=== PATIENT | female | born 1965 | race Caucasian/White ===

== ENCOUNTER 2019-10-06 10:46 | Outpatient (CLI) | payer BC, SELFPAY ==
--- NOTE | ~2019-10-06 | MM_ITS ---
EXAMINATION: MM screening [facility] BI w michelle HISTORY: Screening mammogram TECHNIQUE: Craniocaudal and mediolateral oblique 3-D tomosynthesis images were obtained and synthetic 2-D images were generated. CAD analysis was submitted and interpreted. COMPARISON: 12/24/2017, 05/31/2016, 11/23/2013 BREAST PARENCHYMAL COMPOSITION: The breasts are heterogeneously dense, which may obscure small masses . FINDINGS: RIGHT BREAST: There is a possible mass in the posterior third of the lower inner breast 5 cm from the nipple. LEFT BREAST: There is no evidence of suspicious mass, calcification, or architectural distortion to s uggest malignancy. There has been no significant interval change. IMPRESSION: 1. Possible right breast mass. 2. Additional mammographic views and possible breast ultrasound are recommended. BI-RADS Category 0: Incomplete: Needs additional imaging evaluation. Reviewed, dictated and finalized at location A. IMPRESSION: 1. Possible right breast mass. 2. Additional mammographic views and possible breast ultrasound are recommended . BI-RADS Category 0: Incomplete: Needs additional imaging evaluation.
== END 2019-10-06 10:47 | disposition home or self-care (01) ==
PROVIDERS: PCP Family Medicine; Visit Provider Obstetrics & Gynecology
DX: Z12.31 Encounter for screening mammogram for malignant neoplasm of breast (principal)
CPT/HCPCS: 77063; 77067

== ENCOUNTER 2019-10-08 10:15 | Outpatient (CLI) | payer BC, SELFPAY ==
--- NOTE | ~2019-10-08 | MMUS_ITS ---
EXAMINATION: MM diagnostic emily RT w michelle, US breast RT limited HISTORY: Possible right breast mass on screening mammogram TECHNIQUE: Additional 3-D tomosynthesis images of right were performed and synthetic 2-D images were generated. CAD analysis was submitted and interpreted. High resolution limited right breast ultrasoun d was performed. COMPARISON: 10/06/2019, 12/24/2017, 05/31/2016, 11/23/2013 FINDINGS: MAMMOGRAPHIC FINDINGS: There is an approximately 6 mm low density, obscured mass in the posterior third of the breast at 3:0 0 location 5 cm deep to the nipple. No associated architectural distortion or suspicious calcificatio n are identified. ULTRASOUND: There is a 5 mm x 3 mm cyst at the 2:00 location 3 cm from the nipple corresponding to the mammograph ic finding in question. No suspicious cystic or solid mass is identified. IMPRESSION: 1. No mammographic or sonographic evidence of malignancy. 2. Recommend routine screening mammography in one year. BI-RADS Category 2: Benign finding(s). Reviewed, dictated and finalized at location A. IMPRESSION: 1. No mammographic or sonographic evidence of malignancy. 2. Recommend routine screening mammography in one year. BI-RADS Category 2: Benign finding(s).
== END 2019-10-08 10:16 | disposition home or self-care (01) ==
LOC: CHSIMG 10:16
PROVIDERS: PCP Family Medicine; Visit Provider Obstetrics & Gynecology
DX: R92.8 Other abnormal and inconclusive findings on diagnostic imaging of breast (principal)
CPT/HCPCS: 76642; 77061; 77065; G0279

== ENCOUNTER 2020-08-17 13:21 | Outpatient (CLI) | payer BC, SELFPAY ==
[2020-08-17 14:24] LABS: SARS-CoV-2 RNA PCR Negative (Negative)
== END 2020-08-17 13:22 | disposition home or self-care (01) ==
PROVIDERS: PCP Family Medicine; Visit Provider Family Medicine
DX: J00 Acute nasopharyngitis [common cold] (principal); Z20.822 Contact with and (suspected) exposure to COVID-19
CPT/HCPCS: C9803; U0003; U0005

== ENCOUNTER 2020-10-12 12:16 | Outpatient (CLI) | payer BC, SELFPAY ==
--- NOTE | ~2020-10-12 | MM_ITS ---
EXAMINATION: MM screening emily BI w michelle HISTORY: Screening TECHNIQUE: Craniocaudal and mediolateral oblique 3-D tomosynthesis images were obtained and synthetic 2-D images were generated. CAD analysis was submitted and interpreted. COMPARISON: Comparison to multiple prior studies sequentially, with oldest reviewed study dated 11/11. BREAST PARENCHYMAL COMPOSITION: The breasts are heterogeneously dense, which may obscure small masses . FINDINGS: There is no evidence of suspicious mass, calcification, or architectural distortion to sugg est malignancy in either breast. There has been no suspicious interval change. IMPRESSION: 1. No mammographic evidence of malignancy. 2. Recommend routine screening mammography in one year. BI-RADS Category 1: Negative Reviewed, dictated and finalized at location D.
== END 2020-10-12 12:17 | disposition home or self-care (01) ==
PROVIDERS: PCP Family Medicine; Visit Provider Obstetrics & Gynecology
DX: Z12.31 Encounter for screening mammogram for malignant neoplasm of breast (principal)
CPT/HCPCS: 77063; 77067

== ENCOUNTER 2020-12-02 10:29 | Outpatient (CLI) | payer BC, SELFPAY ==
--- NOTE | ~2020-12-02 | XR_ITS ---
EXAMINATION: XR elbow RT min 3V DATE: 12/02/2020 10:49 INDICATION: Right elbow pain. TECHNIQUE: 4 views of right elbow were obtained. COMPARISON: None. FINDINGS: Bone alignment is normal. No fracture. Joint spaces are well maintained. There is no elbow joint effusion. IMPRESSION: 1. Normal right elbow. Reviewed, dictated and finalized at location A. IMPRESSION: 1. Normal right elbow.
== END 2020-12-02 10:30 | disposition home or self-care (01) ==
LOC: CHSLAB 10:32
PROVIDERS: PCP Family Medicine; Visit Provider Family Medicine
DX: M25.521 Pain in right elbow (principal)
CPT/HCPCS: 73080

== ENCOUNTER 2021-03-20 11:15 | Outpatient (CLI) | payer BC, SELFPAY ==
--- NOTE | ~2021-03-20 | XR_ITS ---
EXAMINATION: XR knee RT 3V EXAM DATE: 03/20/2021 11:45 INDICATION: PAIN IN lateral RIGHT KNEE with bending movements . TECHNIQUE: Three projections of the right knee. Comparison is made to prior examination from 8. FINDINGS: There is round well corticated small ossification projecting over the posterior lateral aspect of the tibiofemoral compartment, could be a right knee joint body. This finding has been indic ated, marked on the examination for review, clinical correlation, and was not present on prior study. Trace joint fluid. There is mild to moderate tricompartmental primary osteoarthritis. There are no ac [place] fractures or dislocations identified. There is no subcutaneous gas. The soft tissue is unremark able. There are no radiopaque foreign bodies. IMPRESSION: Probable right knee joint body. Mild to moderate osteoarthritis. Reviewed, dictated and finalized at location B. IFIED DIETARY MANAGER
== END 2021-03-20 11:16 | disposition home or self-care (01) ==
LOC: CHSIMG 11:16
PROVIDERS: PCP Family Medicine; Visit Provider Family Medicine
DX: M25.561 Pain in right knee (principal)
CPT/HCPCS: 73562

== ENCOUNTER 2021-05-10 15:54 | Outpatient (RCR) | payer BC, SELFPAY ==
--- NOTE | 2021-05-10 16:48 | PTOPEVAL ---
Thank you for referring Pratima Gipson to [facility].? The patient is scheduled to be seen for therapy? ____x/week for ___ weeks. Please review, sign, date and return this plan of care ERICKA. I agree with and certify that the following plan of care is medically necessary. Referring Physician Date Admitting Provider: Attending Provider: Juana Musa, PA Referring Provider: *PT Outpatient Evaluation Start: 05/10/21 16:01 Freq: Status: Active Protocol: Document 05/10/21 16:04 [facility] (Rec: 05/10/21 16:47 [facility] [id number]) Therapy Assessment Status Assessment Status Assessment Status Evaluation Evaluation Information Problem Diagnosis R knee pain, s/p meniscectomy Onset 04/24/21 Additional Evaluation Detail LEFS = 28% funtionally declined Subjective Information patient reports she had a Query Text:As Reported By Patient/ cartilage floater that caused Family a meniscus tear in the R knee. she reports shehad surgery on 04/24/21. she reports she is doing well, but wants to be able to return to running. she reports she has no planned follow up with MD at this time . patient reports she works at the [employer] in [facility]. Prior Level of Function Comments Additional Prior Level of Function patient reports she was an Comments avid runner prior to her injury (3 miles 4x a week). Pain Assessment Timing of Pain Assessment Timing of Pain Assessment Assessment Pain Scale Pain Scale Used Numeric (1 - 10) Self Report Pain Assessment Right Knee(s) Reported Pain Level 0 Greatest Pain Intensity 2 Pain Score Pain Score 0: Self Report Interventions Used Interventions Used By Clinicians Education,Ice,Rest Lower Extremity Range of Motion General Lower Extremity Range of Motion Gross Lower Extremity Range of Motion -4 degrees arom R knee Comments extension 135 degrees arom R knee flexion -2 degrees arom L knee extension 145 degrees arom L knee flexion Lower Extremity Muscle Strength Testing General Lower Extremity Strength Gross Lower Extremity Strength 5/5 L hip flex 4+/5 R hip flex 5/5 L knee flex and ext 4+/5 R knee ext 5/5 R knee flex
--- NOTE | 2021-05-31 07:46 | PTOPEVAL ---
Thank you for referring Pratima Gipson to [facility].? The patient is scheduled to be seen for therapy? ____x/week for ___ weeks. Please review, sign, date and return this plan of care ERICKA. I agree with and certify that the following plan of care is medically necessary. Referring Physician Date Admitting Provider: Attending Provider: Juana Musa, PA Referring Provider: *PT Outpatient Evaluation Start: 05/10/21 16:01 Freq: Status: Active Protocol: Document 05/31/21 07:00 [facility] (Rec: 05/31/21 07:46 [facility] [id number]) Therapy Assessment Status Assessment Status Assessment Status Discharge Evaluation Information Problem Diagnosis R knee pain, s/p meniscectomy Onset 04/24/21 Additional Evaluation Detail LEFS = 2% functionally declined Subjective Information patient reports she feels Query Text:As Reported By Patient/ Good This date. she reports Family she has not yet attempted to begin running/jogging. she reports she does not have a follow up with her MD. Pain Assessment Timing of Pain Assessment Timing of Pain Assessment Assessment Self Report Self Report Pain Level 0 Pain Score Pain Score 0: Self Report Interventions Used Interventions Used By Clinicians Activity or ADL's,Education, Exercise,Ice,Rest Lower Extremity Range of Motion General Lower Extremity Range of Motion Gross Lower Extremity Range of Motion 0-145 degrees arom R knee Comments mobility Lower Extremity Muscle Strength Testing General Lower Extremity Strength Gross Lower Extremity Strength 5/5 bilateral hip flex 5/5 bilateral knee strength Muscle Length Testing Muscle Length Testing Left Hamstring Length 5 Query Text:(90 - 90 Position) Right Hamstring Length 10 Query Text:(90 - 90 Position) Palpation Assessment Palpation Palpation no tenderness to palpation of the R knee. no adhesions noted t the R knee surgical incisions. Gait Assessment Gait Pattern Assessment Gait Pattern No Deviations/Normal Other Gait Observations patient displays equal bilateral LE mechanics during jogging. General Exercise General Exercises Exercise Description Ther ex Query Text:Record Sets, Reps, -rec bike 10 minutes focusing Resistance, and Position on reciprocal motion of the LE 's and to improve CV endurance to return to prior level
== END 2021-05-31 09:56 | disposition home or self-care (01) ==
LOC: CHSPT 15:54
PROVIDERS: PCP Family Medicine; Visit Provider Physician Assistant
DX: M17.11 Unilateral primary osteoarthritis, right knee (principal); Z98.890 Other specified postprocedural states
CPT/HCPCS: 97110; 97161; 97530

== ENCOUNTER 2021-10-13 07:59 | Outpatient (CLI) | payer BC, SELFPAY ==
--- NOTE | ~2021-10-13 | MM_ITS ---
EXAMINATION: MM screening emily BI w michelle HISTORY: Screening mammogram TECHNIQUE: Craniocaudal and mediolateral oblique 3-D tomosynthesis images were obtained and synthetic 2-D images were generated. CAD analysis was submitted and interpreted. COMPARISON: 10/12/2020, 10/08/2019, 10/06/2019 BREAST PARENCHYMAL COMPOSITION: The breasts are heterogeneously dense, which may obscure small masses . FINDINGS: Scattered benign-appearing calcifications are present. There is no suspicious mass, calcifi cation, or architectural distortion to suggest malignancy in either breast. There has been no suspici ous interval change. IMPRESSION: 1. No mammographic evidence of malignancy. 2. Recommend routine screening mammography in one year. BI-RADS Category 2: Benign finding(s). Reviewed, dictated and finalized at location A.
== END 2021-10-13 08:00 | disposition home or self-care (01) ==
LOC: CHSIMG 08:01
PROVIDERS: PCP Family Medicine; Visit Provider Obstetrics & Gynecology
DX: Z12.31 Encounter for screening mammogram for malignant neoplasm of breast (principal)
CPT/HCPCS: 77063; 77067

== ENCOUNTER 2022-09-13 16:41 | Outpatient (CLI) | payer BC, SELFPAY ==
[2022-09-13 16:55] LABS: Basophils Absolute Auto 0.03 K/mm3 (0.00-0.10); Basophils Percent Auto 0.5 % (0.0-1.0); Eosinophils Absolute Auto 0.26 K/mm3 (0.02-0.50); Eosinophils Percent Auto 4.5 % (1.0-6.0); Hematocrit 40.5 % (35.0-49.0); Hemoglobin 13.5 g/dL (12.0-15.0); Immature Granulocyte Absolute 0.02 K/mm3 (0.00-0.00); Immature Granulocyte Percent A 0.3 % (0.0-0.0); Lymphocytes Absolute Auto 1.64 K/mm3 (1.10-4.50); Lymphocytes Percent Auto 28.2 % (18.0-42.0); Mean Corpuscular HGB Conc 33.3 g/dL (32.0-36.0); Mean Corpuscular Volume 93.1 fL (78.0-102.0); Mean Platelet Volume 9.1 fl (9.2-11.8); Monocytes Absolute Auto 0.47 K/mm3 (0.10-0.90); Monocytes Percent Auto 8.1 % (2.0-11.0); Neutrophils Absolute Auto 3.4 K/mm3 (1.7-7.2); Neutrophils Percent Auto 58.4 % (50.0-70.0); Platelet Count Result 220 K/mm3 (150-420); Red Blood Count 4.35 M/mm3 (4.20-5.40); White Blood Count 5.8 K/mm3 (4.8-10.8)
[2022-09-13 17:21] LABS: CRP < 0.5 mg/dL (0.0-0.9)
[2022-09-13 17:57] LABS: Erythrocyte Sedimentation Rate 8 mm/hr (0-20)
== END 2022-09-13 16:42 | disposition home or self-care (01) ==
LOC: CHSLAB 16:42
PROVIDERS: PCP Family Medicine; Visit Provider Family Medicine
DX: R21 Rash and other nonspecific skin eruption (principal)
CPT/HCPCS: 36415; 85025; 85652; 86038; 86140

== ENCOUNTER 2022-10-19 13:58 | Outpatient (CLI) | payer BC, SELFPAY ==
--- NOTE | ~2022-10-19 | MM_ITS ---
EXAMINATION: MM screening emily BI w michelle HISTORY: Screening mammogram TECHNIQUE: Craniocaudal and mediolateral oblique 3-D tomosynthesis images were obtained and synthetic 2-D images were generated. CAD analysis was submitted and interpreted. COMPARISON: 10/13/2021, 10/12/2020 bilateral screening mammogram examinations BREAST PARENCHYMAL COMPOSITION: The breasts are heterogeneously dense, which may obscure small masses . FINDINGS: Scattered bilateral benign calcifications are again noted. There is no evidence of suspicio us mass, calcification, or architectural distortion to suggest malignancy in either breast. There has been no suspicious interval change. IMPRESSION: 1. No mammographic evidence of malignancy. 2. Recommend routine screening mammography in one year. BI-RADS Category 2: Benign finding(s). Reviewed, dictated and finalized at location A.
== END 2022-10-19 13:59 | disposition home or self-care (01) ==
LOC: CHSIMG 13:59
PROVIDERS: PCP Family Medicine; Visit Provider Obstetrics & Gynecology
DX: Z12.31 Encounter for screening mammogram for malignant neoplasm of breast (principal)
CPT/HCPCS: 77063; 77067

== ENCOUNTER 2023-11-26 07:12 | Outpatient (CLI) | payer BC, SELFPAY ==
--- NOTE | ~2023-11-26 | MM_ITS ---
EXAMINATION: MM screening emily BI w michelle HISTORY: Screening TECHNIQUE: Craniocaudal and mediolateral oblique 3-D tomosynthesis images were obtained and synthetic 2-D images were generated. CAD analysis was submitted and interpreted. COMPARISON: Comparison to multiple prior studies sequentially, with oldest reviewed study dated 12/12. BREAST PARENCHYMAL COMPOSITION: Dense: The breasts are heterogeneously dense, which may obscure small masses FINDINGS: There are scattered benign bilateral breast calcifications. There is no evidence of suspici ous mass, calcification, or architectural distortion to suggest malignancy in either breast. There boateng s been no suspicious interval change. IMPRESSION: 1. No mammographic evidence of malignancy. 2. Recommend routine screening mammography in one year. BI-RADS Category 2: Benign finding(s). Reviewed, dictated and finalized at location B.
== END 2023-11-26 07:13 | disposition home or self-care (01) ==
LOC: CHSIMG 07:13
PROVIDERS: PCP Family Medicine; Visit Provider Obstetrics & Gynecology
DX: Z12.31 Encounter for screening mammogram for malignant neoplasm of breast (principal)
CPT/HCPCS: 77063; 77067

== ENCOUNTER 2024-01-21 09:05 | Outpatient (CLI) | payer BC, SELFPAY ==
--- NOTE | ~2024-01-21 | XR_ITS ---
EXAMINATION: XR chest 2V 01/21/2024 09:25 INDICATION: Chronic cough PROCEDURE: 2 view chest COMPARISON: No prior studies for comparison. FINDINGS: The lungs are clear. The cardiomediastinal silhouette is within normal limits. There are no pleural effusions. There is no pneumothorax suspected. There images scoliosis. IMPRESSION: 1: NO ACUTE CARDIOPULMONARY DISEASE. Reviewed, dictated and finalized at location B. LSTERY BUNDLER
== END 2024-01-21 09:06 | disposition home or self-care (01) ==
PROVIDERS: PCP Family Medicine; Visit Provider Family Medicine
DX: R13.19 Other dysphagia (principal); R05.2 Subacute cough
CPT/HCPCS: 71046

== ENCOUNTER 2024-01-24 07:58 | Outpatient (CLI) | payer BC, SELFPAY ==
--- NOTE | ~2024-01-24 | XR_ITS ---
EXAMINATION: XR barium swallow DATE: 01/24/2024 09:37 INDICATION: Dysphagia TECHNIQUE: The patient drank thick barium, gas-producing crystals, and thin barium. Fluoroscopic spot radiographs of the hypopharynx and esophagus were obtained. Fluoroscopy exposure time was 1.9 minut es. A total of 1114 fluoroscopic images were recorded. Total DAP was 3.89 Gycm^2 COMPARISON: None. FINDINGS: The pharynx is symmetric and without evidence of mass lesion or mucosal irregularity. The e sophagus is normal without mass or stricture. There is esophageal dysmotility with poor progression o f the primary peristaltic wave at the level of the midesophagus and with multiple tertiary contractio ns in the distal esophagus. There is a likely secondary small pulsion diverticulum in the distal thir d of the esophagus. There is no hiatal hernia. There was no gastroesophageal reflux with provocative maneuvers. IMPRESSION: 1. Esophageal dysmotility with weakening and poor progression of the primary peristaltic wave in the mid esophagus and with tertiary contractions and small pulsion diverticulum in the distal esophagus. Reviewed, dictated and finalized at location A. CTOR OF CONTENT MARKETING IMPRESSION: 1. Esophageal dysmotility with weakening and poor progression of the primary pe ristaltic wave in the mid esophagus and with tertiary contractions and small pu lsion diverticulum in the distal esophagus.
== END 2024-01-24 07:59 | disposition home or self-care (01) ==
PROVIDERS: PCP Family Medicine; Visit Provider Family Medicine
DX: K22.4 Dyskinesia of esophagus (principal)
CPT/HCPCS: 74220

== ENCOUNTER 2024-03-20 01:04 | Day surgery (SDC) | payer BC, SELFPAY ==
[2024-03-05 14:31] VITALS: BMI 22.5
--- OUTSIDE RECORDS SUMMARY | 2024-03-20 01:11 | XMS_ITS | Clinical Summary ---
Author Organization [facility] Address [address] [place] [address] Care Team Providers Care Automotive Paint Technician Name Role Phone Kulwinder Reardon MD Primary Care Provider [phone] Source Comments [facility],non-owned Affiliates and Associated Physician Practices is amultiple site organization consisting of ambulatory clinics and hospital sitesin [place], [place], [place]. This disclosure is being madepursuant to the Care Everywhere program and may not contain all information available regarding this patient. Last updated 17.[facility] Allergies No known active allergies Medications * Be aware that medications may not be up to date on this document. Alwaysverify current medications with the patient. Medication Sig Dispensed Refills Start Date End Date Status Loratadine-Pseudoephedrine (CLARITIN-D 24 HOUR PO) A ctive Family History Medical History Relation Name Comments CAD (Coronary Artery Disease) Father Diabetes - Type 1 Father Relation Name Status Comments Father Social History Tobacco Use Types Packs/Day Years Used Date Smoking Tobacco: Never Smokeless Tobacco: Never Sex and Gender Information Value Date Recorded Sex Assigned at Not on file Gender Identity Not on file Sexual Orientation Not on file Last Filed Vital Signs Vital Sign Reading Time Taken Comments Blood Pressure 114/70 10/15/2016 3:04 PM CDT Pulse 93 10/15/2016 3:04 PM CDT Temperature 37.2 C (99 F) 10/15/2016 3:04 PM CDT Respiratory Rate 16 10/15/2016 3:04 PM CDT Oxygen Saturation 95% 10/15/2016 3:04 PM CDT Inhaled Oxygen Concentration - - Weight 56.7 kg (125 lb) 10/15/2016 3:04 PM CDT Height 157.5 cm (5' 2 ) 10/15/2016 3:04 PM CDT Body Mass Index 22.86 10/15/2016 3:04 PM CDT Plan of Treatment Health Maintenance Due Date Last Done Comments COLOGUARD (AGES 45-75) - COL ON CA SCREENING 1967 COLON MONITORING 1967 COLONOSCOPY - COLON CA SCREENING 1967 CT COLONOGRAPHY - COLON CA SCREENING 1967 Colorectal Cancer Screening 1967 FIT - COLON CA SCREENING 1967 FLEX SIG - COLON CA SCREENING 1967 LIPID TESTING 1967 MAMMOGRAM 1967 PAP SMEAR 1967 HIV SCREENING 07/26/1982 HEPATITIS C SCREENING 07/22/1985 DTAP/TDAP/TD VACCINES (1 - Tdap) 07/26/1986 HEPATITIS B VACCINE (1 of 3 - 19+ 3-dose series) 07/26/1986 PNEUMOCOCCAL VACCINE 50+ (1 of 1 - PCV) 07/26/2017 ZOSTER VACCINE (1 of 2) 07/26/2017 COVID-19 VACCINE (1 - 2023-2 5 season) 2023 INFLUENZA VACCINE (#1) 2023 DEPRESSION SCREENING 02/12/2024 HIB VACCINE Aged Out No longer eligi ble based on patient's age to complete this topic HPV VACCINE Aged Out No longer eligi ble based on patient's age to complete this topic MENINGOCOCCAL (Group B) VACCINE Aged Out No longer eligible based on patient's age to complete this topic MENINGOCOCCAL VACCINE Aged Out No alton yovanny eligible based on patient's age to complete this topic PNEUMOCOCCAL VACCINE Aged Out No long er eligible based on patient's age to complete this topic Care Teams Automotive Paint Technician Relationship Specialty Start Date End Date Kulwinder Reardon MD [address] [place] [phone] PCP - General Family Medicine 10/15/16
--- OUTSIDE RECORDS SUMMARY | 2024-03-20 01:11 | XMS_ITS | Patient Health Summary ---
Author Organization [facility] Address [address] [place] [address] Care Team Providers Care Content Management Specialist Name Role Phone Kulwinder Reardon MD Primary Care Provider [phone] Note from [facility],non-owned Affiliates and Associated Physician Practices is amultiple site organization consisting of ambulatory clinics and hospital sitesin [place], [place], [place] and [place]. This disclosure is being madepursuant to the Care Everywhere program and may not contain all information available regarding this patient. Last updated 17.[facility] Allergies No known active allergies Medications * Be aware that medications may not be up to date on this document. Alwaysverify current medications with the patient. * Loratadine-Pseudoephedrine (CLARITIN-D 24 HOUR PO) Social History Tobacco Use Types Packs/Day Years [...] Mass Index 22.86 10/15/2016 3:04 PM CDT Care Teams Content Management Specialist Relationship Specialty Start Date End Date Kulwinder Reardon MD [address] [place] [phone] PCP - General Family Medicine 10/15/16
--- OUTSIDE RECORDS SUMMARY | 2024-03-20 01:11 | XMS_ITS | Referral Summary ---
Author Organization [facility] Address [address] [place] [address] Care Team Providers Care Circus Roustabout Name Role Phone Kulwinder Reardon MD Primary Care Provide r Juana Musa Unavailable Allergies No known active allergies Medications estradiol-noret hindrone (ACTIVELLA) 0.5-0.1 mg per tablet Take 1 tablet by mouth daily 2 Active loratadine (CLARITIN) 5 mg chewable tablet Take 5 mg by mouth daily Active triprolid/pheny leph/DM/acetam (MUCINEX NIGHTSHIFT SINUS ORAL) Take 1 tablet by mouth nightly Active aspirin 81 mg chewable tablet Take 1 tablet (81 mg total) by mouth 2 (two) times a day 28 tablet 2 Active HYDROcodone-steven taminophen (NORCO) 5-325 mg per tabletIndicatio ns:Pain Take 1-2 tablets every 4-6 hours as needed for pain 33 tablet 2 Active Additional Information Patient not taking.Reported on 05/08/2021 cholecalciferol (VITAMIN D-3) 2000 unit capsule Take 1 capsule (2,000 Units total) by mouth daily for 14 days 14 capsule 2 Active ascorbic acid (VITAMIN C) 500 mg tablet,chewable Take 1 tablet/chew tab (500 mg total) by mouth 2 (two) times a day for 14 days 28 tablet/chew tab 2 Active ondansetron (ZOFRAN) 4 mg tablet Take 1 tablet (4 mg total) by mouth every 8 (eight) hours as needed for nausea or vomiting 20 tablet 2 Active senna-docusate (PERICOLACE) 8.6-50 mg 1-2 times daily as needed for constipation 20 tablet 2 Active Active Problems Problem Noted Date Diagnosed Date Loose body of right knee 04/21/2021 Overview (04/21/2021): Added automatically from request for surgery [id number] Locking knee, right 04/21/2021 Overview (04/21/2021): Added automatically from request for surgery [id number] Social History Tobacco Use Types Packs/Day Years Used Date Smoking Tobacco: Never Smokeless Tobacco: Never AUDIT-C Answer Date Recorded Q1: How often do you have a drink containing alc ohol? 2-4 times a month 04/24/2021 Q2: How many drinks containi ng alcohol do you have on a typical day when you are drinking? 3 or 4 04/24/2021 Q3: How often do you have si x or more drinks on one occasion? 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 Gender Identity Not on file Sexual Orientation Not on file Last Filed Vital Signs Vital Sign Reading Time Taken Comments Blood Pressure 130/78 05/08/2021 10:24 AM CDT Pulse 66 05/08/2021 10:24 AM CDT Temperature 36.1 C (97 F) 04/24/2021 4:40 PM CDT Respiratory Rate 20 04/24/2021 4:40 PM CDT Oxygen Saturation 99% 04/24/2021 4:40 PM CDT Inhaled Oxygen Concentration - - Weight 58.4 kg (128 lb 12.8 oz) 022 10:24 AM CDT Height 157.5 cm (5' 2 ) 05/08/2021 10:2 4 AM CDT Body Mass Index 23.56 05/08/2021 10:24 AM CDT Plan of Treatment Not on file Insurance ANTH [employer] Care Teams Circus Roustabout Relationship Specialty Start Date End Date Kulwinder Reardon MD [address] [place] [address] PCP - General 01/17/16 Juana Musa PA [address] [place] [address] Physician Machinist General Orthopedic Surgery 04/24/21
--- OUTSIDE RECORDS SUMMARY | 2024-03-20 01:11 | XMS_ITS | Referral Summary ---
Author Organization [facility] Address [address] [place] [address] Care Team Providers Care Wallpaper Hanger Helper Name Role Phone Kulwinder Reardon MD Primary Care Provider [phone] Source Comments [facility],non-owned Affiliates and Associated Physician Practices is amultiple site organization consisting of ambulatory clinics and hospital sitesin [place], [place], [place] and [place]. This disclosure is being madepursuant to the Care Everywhere program and may not contain all information available regarding this patient. Last updated 17.[facility] Allergies No known active allergies Medications * Be aware that medications may not be up to date on this document. Alwaysverify current medications with the patient. Medication Sig Dispensed Refills Start Date End Date Status Loratadine-Pseudoephedrine (CLARITIN-D 24 HOUR PO) A ctive Social History Tobacco Use Types Packs/Day Years [...] 10/15/2016 3:04 PM CDT Plan of Treatment Not on file Care Teams Wallpaper Hanger Helper Relationship Specialty Start Date End Date Kulwinder Reardon MD [address] [place] [phone] PCP - General Family Medicine 10/15/16
--- OUTSIDE RECORDS SUMMARY | 2024-03-20 01:11 | XMS_ITS | Clinical Summary ---
Author Organization [facility] Address [address] [place] [address] Care Team Providers Care Raise Driller Name Role Phone Kulwinder Reardon MD Primary Care Provide r Juana Musa Unavailable [phone] Allergies No known active allergies Medications estradiol-noret [...] (04/21/2021): Added automatically from request for surgery [id number] Locking knee, right 04/21/2021 Overview (04/21/2021): Added automatically from request for surgery [id number] Surgical History Surgery Date Site/Laterality Comments CARPAL TUNNEL RELEASE Carpal tunnel release OTHER SURGICAL HISTORY Knee left, 01/02/16 SECTION KNEE SURGERY Medical History Medical History Date Comments Hx Other Medical times three; Comments: APO 12/09/2015 - PONV (postoperative nausea and vomiting) Family History Medical History Relation Name Comments No Known Problems Brother No Known Problems Daughter No Known Problems Father No Known Problems Mother No Known Problems Sister Relation Name Status Comments Brother Daughter Father Mother Sister Social History Tobacco Use Types Packs/Day Years [...] on file Legal Sex Female 4:16 AM [employer]ING [employer] Gender Identity Not on file Sexual Orientation Not on file Obstetrics History Last Filed Vital Signs Vital Sign Reading [...] 05/08/2021 10:24 AM CDT Plan of Treatment Health Maintenance Due Date Last Done Comments Breast Cancer Screening-Mammogram 1967 Cervical Cancer Screening 1967 Colon Cancer Screening-Colonoscopy 1967 Depression Screening 1967 Hepatitis C Screening 1967 Hepatitis B Screening 07/26/1985 Regular Well Visit/Exam 18-64 07/26/1985 Zoster Vaccine (1 of 2) 07/26/2017 Covid-19 Vaccine ( season) 2023 02/21/2021, 05/20/2020, 04/20/2020 Influenza Vaccine (#1) 2023 9, 11/04/2015, 12/21/2014, Additional history exists DTaP/Tdap/Td Vaccine (2 - Td or Tdap) 10/04/2027 10/03/2017 Pneumococcal vaccine <65 Aged Out No longer eligible based on patient's age to complete this topic Insurance [employer] Care Teams Raise Driller Relationship Specialty Start Date End Date Kulwinder Reardon MD [address] [place] [address] PCP - General 01/17/16 Juana Musa PA [address] [place] [address] Physician [employer] Professor Orthopedic Surgery 04/24/21
--- OUTSIDE RECORDS SUMMARY | 2024-03-20 01:11 | XMS_ITS | Clinical Summary ---
Author Organization [facility] Address [address] [place] [address] Phone Care Team Providers Care Change Coordinator Name Role Phone Kulwinder Reardon MD Primary Care Provider Medications Loratadine (CLARITIN) 10 MG Capsule Take 1 Cap by mouth daily. Active Family History Medical History Relation Name Comments Diabetes Father Heart Disease Father Hypertension Mother Relation Name Status Comments Father Mother Alive Social History Tobacco Use Types Packs/Day Years Used Date Smoking Tobacco: Never Alcohol Use Standard Drinks/Week Comments Yes 0 (1 standard drink = 0.6 oz pur e alcohol) social Comments Unknown Sex and Gender Information Value Date Recorded Sex Assigned at Not on file Legal Sex Female 11:03 AM CDT Gender Identity Not on file Sexual Orientation Not on file Last Filed Vital Signs Vital Sign Reading Time Taken Comments Blood Pressure 120/70 01/02/2016 3:20 PM GENERAL CLEANER Pulse 57 01/02/2016 3:20 PM GENERAL CLEANER Temperature 36 C (96.8 F) 01/02/2016 3:20 PM GENERAL CLEANER Respiratory Rate 16 01/02/2016 3:20 PM GENERAL CLEANER Oxygen Saturation 96% 01/02/2016 3:20 PM GENERAL CLEANER Inhaled Oxygen Concentration - - Weight 56.2 kg (124 lb) 12/27/2015 9:00 AM GENERAL CLEANER Height 157.5 cm (5' 2 ) 12/27/2015 9:00 AM GENERAL CLEANER Body Mass Index 22.68 12/27/2015 9:00 AM GENERAL CLEANER Plan of Treatment Health Maintenance Due Date Last Done Comments Hepatitis C Virus (HCV) Screening 1965 TdaP Immunization 1965 Hepatitis B Immunization (1 of 3 - 19+ 3-dose series) 07/26/1986 Pap Smear 07/26/1988 Cervical Cancer Screening (CCS) 07/26/1997 HPV/Cotest 07/26/1997 Colonoscopy 07/26/2012 Colorectal Cancer Screening 07/26/2012 Cologuard 07/26/2017 Immunochemical Fecal Occult Blood 07/26/2017 Mammogram 07/26/2017 Pneumococcal Immunization (5 0+ years) (1 of 1 - PCV) 07/26/2017 Zoster Immunization (1 of 2) 07/26/2017 Influenza Immunization (#1) 2023 SARS-COV-2 Immunization ( - 2023- season) 2023 Respiratory Syncytial Virus (RSV) Immunization (Adult) (1 - 1-dose 75+ series) 07/26/2042 Meningococcal Immunization (ACWY) Aged Out No longer eligible based on patient's age to complete this topic Pneumococcal Immunization Combined Aged Out No longer eligible based on patient's age to complete this topic Rotavirus Immunization Aged Out No lo nger eligible based on patient's age to complete this topic Insurance [facility] Care Teams Change Coordinator Relationship Specialty Start Date End Date Kulwinder Reardon MD [address] [place] [address] PCP - General Pediatrics 12/28/15
[2024-03-20 09:14] VITALS: BP 115/65; PULSE 62; RESP 19; TEMP 36.6; O2SAT 100
[2024-03-20] MEDS: LACTATED RINGERS 1,000 ML 150 ML IV CONT (09:23)
--- NOTE | 2024-03-20 09:41 | WPDANESEPPF ---
Anes - Initial Pre Proc Eval Procedure: Operation Date: 03/20/24 10:30 Proposed Procedures p Esophagogastroduodenoscopy - Todd Conley MD Date/Time: 03/20/24 09:41 Surgeon: Todd Conley MD Pre Op Diagnosis: dysphagia Patient Data Age: 58 Gender: F Height: 1.57 m Weight: 57.4 kg Last Vital Signs Temp 36.6 C 03/20/24 09:14 Pulse 62 03/20/24 09:14 Resp 19 03/20/24 09:14 BP 115/65 03/20/24 09:14 Pulse Ox 100 03/20/24 09:14 O2 Del Method Room Air 03/20/24 09:14 Allergies Allergy/AdvReac Type Severity Reaction Status Date / Time No Known Allergies Allergy Verified 03/20/24 09:10 Home Medications ?Medication ?Instructions ?Recorded ?Confirmed ?Type estradiol-norethindrone acet 0.5 1 tablet PO Q24H 03/05/24 03/20/24 History mg-0.1 mg tablet guaifenesin 600 mg tablet, 600 mg PO HS 03/05/24 03/20/24 History extended release 12 hr (Mucinex) loratadine-pseudoephedrine ER 10 1 tablet PO DAILY 03/05/24 03/20/24 History mg-240 mg tablet,extended [id number] (Allergy Relief and Nasal Decongestant) Patient hx anesthesia problems: none Family hx anesthesia problems: none Results Review: All pre-operative results and documents have been reviewed as part of the pre-operative evaluation. [facility] Past Medical History Medical History Dysphagia Social History Social History Smoking status: Never smoker Substance use: never Substance use type: does not use Living arrangements: with family Spiritual care concerns: No Anes - Eval Final PreProcedure Day of Procedure 03/20/24 09:41 Patient weight: normal Heart: regular rate and rhythm Lungs: clear to auscultation Airway: Mallampati scale class II Neurological: alert and oriented Last oral intake: >/= 8 hours ASA classification: I Emergent: no Anesthetic plan: proceed Anesthesia type and monitoring: general GIVS and standard monitoring Results Review: All pre-operative results and documents have been reviewed as part of the pre-operative evaluation. Informed Consent: The patient's anesthetic plan and its attendant risks and benefits were discussed with the patient/family/POA. Questions were solicited and answers provided to the satisfaction of the patient/family/POA.
--- NOTE | 2024-03-20 09:46 | WPDHPUPDATE1 ---
History and Physical Update Update Date/Time: 03/20/24 09:46 History and Physical has been reviewed, including an updated exam of the patient. There are NO changes in the patient's condition. Risks, benefits, and alternatives have been discussed and questions answered. Patient agrees to proceed with procedure.
[2024-03-20 10:01] VITALS: BP 105/54; PULSE 68; RESP 22; O2SAT 97
[2024-03-20 10:11] VITALS: BP 106/69; PULSE 68; RESP 20; O2SAT 100
[2024-03-20 10:21] VITALS: BP 117/63; PULSE 60; RESP 17; O2SAT 100
== END 2024-03-20 10:40 | disposition home or self-care (01) ==
PROVIDERS: PCP Family Medicine; Referring Provider Nurse Practitioner Family; Visit Provider Internal Medicine Gastroenterology
PROC: 0DJ08ZZ Inspection of Upper Intestinal Tract, Via Natural or Artificial Opening Endoscopic (ICD-10-PCS; CPT 43239; principal; 2024-03-20 10:30)
DX: R13.10 Dysphagia, unspecified (principal); K29.50 Unspecified chronic gastritis without bleeding
CPT/HCPCS: 43239; 88305; J2003; J2704; J7120

== ENCOUNTER 2024-12-15 07:19 | Outpatient (CLI) | payer BC, SELFPAY ==
--- NOTE | ~2024-12-15 | MM_ITS ---
EXAMINATION: MM screening emily BI w michelle HISTORY: Screening TECHNIQUE: Craniocaudal and mediolateral oblique 3-D tomosynthesis images were obtained and synthetic 2-D images were generated. CAD analysis was submitted and interpreted. COMPARISON: Comparison to multiple prior studies sequentially, with oldest reviewed study dated , 10/12/2020 BREAST PARENCHYMAL COMPOSITION: The breasts are heterogeneously dense, which may obscure small masses. FINDINGS: There is no evidence of suspicious mass, calcification, or architectural distortion to suggest malignancy in either breast. IMPRESSION: 1. No mammographic evidence of malignancy. 2. Recommend routine screening mammography in one year. BI-RADS Category 1: Negative Reviewed, dictated and finalized at location B. LITY COORDINATOR
== END 2024-12-15 07:20 | disposition home or self-care (01) ==
PROVIDERS: PCP Family Medicine; Visit Provider Obstetrics & Gynecology
DX: Z12.31 Encounter for screening mammogram for malignant neoplasm of breast (principal)
CPT/HCPCS: 77063; 77067